=== PATIENT | female | born 1930 | race Caucasian/White ===

== ENCOUNTER 2018-09-07 11:01 | Day surgery (SDC) | payer MEDICARE ==
--- NOTE | 2018-09-07 06:45 | History and Physical - [place] ---
CHIEF COMPLAINT/HISTORY OF CHIEF COMPLAINT: This patient presents with a history of an intractable lumbar radiculopathy. Due to the failure of all therapy, a spinal cord stimulator trial was conducted on 08/09/18 with 75-85% pain control. Due to the failure of all therapy and the success of the trial, the patient presents for implantation of a permanent system. PAST MEDICAL HISTORY: Hypertension, reflux esophagitis, and degenerative arthritis. PAST SURGICAL HISTORY: Lumbar spinal surgery, aortic aneurysm resection, and breast biopsy. EMPLOYMENT STATUS: Retired. MEDICATIONS ON ADMISSION: List to be provided. ALLERGIES: PENICILLIN AND ERYTHROMYCIN. FAMILY/PSYCHOSOCIAL HISTORY: Social history - Caffeine. Family history - Noncontributory. SYSTEMS REVIEW: The patient is appropriate in no acute distress. PHYSICAL EXAMINATION: Height is 4'10", weight not noted. Vital signs - Not available. HEENT: Within normal limits. LUNGS: Clear. HEART: Rapide and regular. ABDOMEN: Nontender. MUSCULOSKELETAL: Examination of the musculoskeletal system shows diffuse tenderness lumbar spine. Range of motion does produce pain across the low back and extending into the extremities. There is a pattern of weakness across both legs as well as sensory abnormalities perhaps L4-L5 and L5-S1. Ambulation - No assistive device utilized. NEUROLOGIC: Cranial nerves are intact. 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 PLAN: Due to the failure of all therapy and the success of a stimulator trial, the patient presents today for implantation of a permanent system. The procedure will be considered outpatient although an overnight stay will be evaluated. The potential risks, side effects, and complications have all been carefully reviewed and discussed. Information from the emission specialist presented. Direct interaction with a clinical specialist from the company was provided. All questions were answered. JOB NUMBER: [id number] MTDD
[~2018-09-07 11:01] MED LIST: ACETAMINOPHEN 1,000 MG/100 ML BTL IV ONE; CLINDAMYCIN 600MG/50ML PREMIX 600 MG/50 ML BAG IVPB ONE; FAMOTIDINE 20MG TABLET PO ONE; MECLIZINE 25 MG TABLET PO ONE; METOCLOPRAMIDE 10 MG TABLET PO ONE
[2018-09-07] MEDS ORDERED: FENTANYL PF 100MCG/2ML VIAL IV ONE (11:02)
[2018-09-07] MEDS ORDERED: PROPOFOL 10 MG/ML VIAL IV ONE (11:02)
[2018-09-07] MEDS ORDERED: Clindamycin 600mg vial 150 MG/ML VIAL IVPB ONE (11:02)
[2018-09-07] MEDS ORDERED: LIDOCAINE 2% MDV (20MG/ML) 20ML VIAL IV ONE (11:02)
[2018-09-07] MEDS ORDERED: MIDAZOLAM HCL 2MG/2ML VIAL IV ONE (11:02)
[2018-09-07] MEDS ORDERED: BUPIVACAINE 0.5% W/EPI MPF 30 ML VIAL IVP ONE (11:02)
[2018-09-07] MEDS ORDERED: LIDOCAINE 1% W/EPI 1:200,000 MPF 30ML SQ ONE (11:02)
--- NOTE | 2018-09-09 15:20 | Operative Note ---
DATE: 09/07/2018. PRIMARY CARE PHYSICIAN: Danelle Rojas M.D. PREOPERATIVE DIAGNOSIS: 1. POSTLUMBAR LAMINECTOMY SYNDROME, ICD-10 CODE M96.1. 2. RADICULOPATHY, ICD-10 CODE M54.16 AND M54.17. POSTOPERATIVE DIAGNOSIS: 1. POSTLUMBAR LAMINECTOMY SYNDROME, ICD-10 CODE M96.1. 2. RADICULOPATHY, ICD-10 CODE M54.16 AND M54.17. ANESTHESIA: Local sedation. ANESTHESIA PROVIDER: Tiffanie Francois CRNA. PROCEDURES: 1. Fluoroscopically guided left epidural access at T11-12. Placement of spinal cord stimulator lead 1, a [employer] Infineon 16 with 16 electrodes, positioned left T7. 2. Fluoroscopically guided left epidural access at T12-L1. Placement of spinal cord stimulator lead 2, a [employer] Infineon 16 with 16 electrodes, positioned right T7. 3. Complex programming of lead 1 over 20 minutes followed by complex programming of lead 2 over 20 minutes. 4. Incision, subcutaneous dissection, and anchoring of leads 1 and 2 to the supraspinous fascia with a [employer] locking anchor and nonabsorbable suture. 5. Incision, subcutaneous dissection, and creation of subcutaneous pouch at the left posterior gluteal margin for placement of generator identified as a [employer] programmable rechargeable WaveWriter generator. 6. Tunnelling midline lead pouch to generator pouch, extending leads into generator pouch, each lead interfaced to the generator. 7. Placement of generator into pouch. Placement of leads into the pouch. 8. Closure of both incisions using Stratafix suture; #2-0 for the fascia and #3 -0 for the skin. Dermabond closure. 9. Complex recovery room programming of the internal generator for home use, two stimulators, for 20 minutes. SURGEON: Alfonzo Gilliland D.O. INDICATIONS: This patient presents with a history of an intractable post lumbar laminectomy radiculopathy. Due to the failure of all therapies, a spinal cord stimulator trial was conducted with 75 to 85 percent pain control. Due to the failure of all therapies and the success of the trial, the patient presents today for implantation of a permanent system. DESCRIPTION OF PROCEDURE: Intravenous lines, vital sign monitoring, and intravenous sedation. Prepped and draped with sterile technique with the patient positioned prone. Local for infiltration and imaging for guidance. The epidural interspaces left of the midline at T11-12 and 12-1 were marked and infiltrated. Using two separate curved access Epimed needles with loss of resistance the space was accessed atraumatically; no blood or cerebrospinal fluid. At 11-12, spinal cord stimulator lead 1, a [employer] Infineon 16 with 16 electrodes, was advanced into the epidural space and positioned left of midline at T7. With the epidural access at 12-1, spinal cord stimulator lead 2, a [employer] Infineon 16 with 16 electrodes was positioned right of the midline at T7. Complex programming of lead 1 over 20 minutes was followed by complex programming of lead 2 over 20 minutes. This resulted in complete patterns of stimulation across the back and into the legs. The patient indicated we were in all of the areas of the pain. She was given the options to implant, continue to program, or remove. She opted to implant. The questions were repeated with the same response. She was then resedated. The skin above and below both needles was infiltrated with local. An incision was made, and subcutaneous dissection was conducted to the supraspinous fascia. The needles were removed and then each lead was anchored to the supraspinous fascia with a [employer] locking anchor. At the left posterior gluteal margin, the site picked by the patient for the generator, the skin was infiltrated. An incision was made and subcutaneous dissection was conducted to form a pouch of suitable size and depth for the generator, a [employer] programmable rechargeable WaveWriter generator. A tunneling tool was used to carry the leads into the generator pouch, and then each lead was interfaced to the generator. Antibiotic irrigation and Bovie for hemostasis. The generator was placed into the pouch and the leads were placed into their own pouch. Both incisions were then closed using Stratafix suture; # 2-0 for the fascia and #3-0 for the skin. A Dermabond closure was then used to approximate the edges of both wounds. She was transported to the recovery room stable with no side effects from the procedure or the sedation. She had full functionality of the extremities; nothing unusual or atypical. She was monitored until stable and wanted to be discharged. DISCHARGE INSTRUCTIONS: 1. The sites are to remain clean and dry. No showering or bathing in any way that would disrupt dressings. If this happens, contact the clinic. 2. Standard medications to be resumed including the antibiotic Keflex. She will take 500 mg twice a day for 10 days. 3. The office is to contact the patient in the next 12 to 24 hours to set up a time in the next 3 to 5 days for us to evaluate the sites. Until then she is to keep her activities low; no lift, bend, push, or pull. 4. All other instructions were provided including numbers to contact with problems. She will then be discharged. JOB NUMBER: [id number] cc: Brian Trejo
--- NOTE | 2018-09-10 22:09 | RADIOLOGY REPORT ---
EXAM: SPINE, 1 VIEW HISTORY: SPINAL CORD STIMULATOR IMPLANT. TECHNIQUE: A single frontal view of the thoracolumbar spine. COMPARISON: None. FINDINGS: Spinal stimulator device leads are noted T7 through T9 level. A generator device superimposes the left lower abdomen. Please see operative report for additional details. Lower lumbar spinal fixation hardware is noted. Degenerative changes of the thoracic and lumbar spine with dextrocurvature of the lumbar spine. Nonspecific small calcifications in the left upper abdominal quadrant. IMPRESSION: ABOVE. JOB NUMBER: [id number] [facility]
== END 2018-09-07 14:35 | disposition home or self-care (01) ==
LOC: SUR 11:01
PROVIDERS: ATTEND Pain Medicine Interventional Pain Medicine
DX: M96.1 Postlaminectomy syndrome, not elsewhere classified (principal); M54.16 Radiculopathy, lumbar region; M54.17 Radiculopathy, lumbosacral region; I10 Essential (primary) hypertension; E78.00 Pure hypercholesterolemia, unspecified; J45.909 Unspecified asthma, uncomplicated
CPT/HCPCS: 63650; 63685; 01936; 95972; 72020; J3010; C1820; C1883